=== PATIENT | male | born 1980 | race Caucasian/White ===

== ENCOUNTER 2025-03-29 09:15 | Outpatient (CLI) | payer OTHER, SELFPAY ==
--- OUTSIDE RECORDS SUMMARY | 2025-03-29 10:13 | XMS_ITS | Clinical Summary ---
Author Organization [facility] Address [address] [place] [address] Phone Care Team Providers Care Production Assembly Supervisor Name Role Phone Joyce Kumar MD Primary Care Provider Allergies Active Allergy Reactions Criticality Noted Date Comments Penicillins Anaphylaxis,Other (see Comments) High Medications BuPROPion HCl 200 MG TABLET SR 12 HR Take 150 mg by mouth 2 times daily. 2 9 Active Polyethylene Glycol 3350 (MIRALAX PO) Take 17 g by mouth 2 times daily. Active Sennosides (EX-LAX PO) Take 1 Tab by mouth. Weekly as needed. Active Probiotic Product (PROBIOTIC-10 PO) Take 1 Cap by mouth daily. Active Calcium Polycarbophil (FIBER-CAPS PO) Take 1 Cap by mouth daily. Active Psyllium (METAMUCIL PO) Take by mouth. Active Bismuth 262 MG Chewable Tablet 3 PO QID FOR 10 DAYS 120 Tab 9 Active Additional Information Patient not taking.Reported on 10/16/2021 metroNIDAZOLE (FLAGYL) 250 MG Tablet TAKE 1.5 TABS PO QID FOR 10 DAYS 60 Tab 9 Active Additional Information Patient not taking.Reported on 10/16/2021 omeprazole (PRILOSEC) 20 MG CAPSULE DELAYED RELEASE TAKE ONE BID 20 Cap 9 Active Additional Information Patient not taking.Reported on 10/16/2021 famotidine (PEPCID) 20 MG Tablet Take 20 mg by mouth 2 times daily. Active Family History Medical History Relation Name Comments Diabetes Father Bladder cancer Maternal Grandmother Ulcerative Colitis Mother Relation Name Status Comments Father Alive Maternal Grandmother Mother Alive Social History Tobacco Use Types Packs/Day Years Used Date Smoking Tobacco: Never Smokeless Tobacco: Never Tobacco Cessation:Counseling Given: No Alcohol Use Standard Drinks/Week Comments Yes 0 (1 standard drink = 0.6 oz pur e alcohol) rare Sexually Active Control Partners Comments Yes Female Sex and Gender Information Value Date Recorded Sex Assigned at Not on file Legal Sex Male 11:31 PM CDT Gender Identity Not on file Sexual Orientation Not on file Last Filed Vital Signs Vital Sign Reading Time Taken Comments Blood Pressure 100/80 10/16/2021 9:11 AM CDT Pulse 88 10/16/2021 9:11 AM CDT Temperature 37 C (98.6 F) 10/16/2021 9:11 AM CDT Respiratory Rate 20 10/16/2021 9:11 AM CDT Oxygen Saturation 98% 10/16/2021 9:11 AM CDT Inhaled Oxygen Concentration - - Weight 74.8 kg (165 lb) 10/16/2021 9:11 AM CDT Height 185.4 cm (6' 1) 10/16/2021 9:11 AM CDT Body Mass Index 21.77 10/16/2021 9:11 AM CDT Plan of Treatment Health Maintenance Due Date Last Done Comments Hepatitis C Virus (HCV) Screening 1979 Hepatitis B Immunization (1 of 3 - 19+ 3-dose series) 1998 Human Papillomavirus (HPV) Immunization (1 - 3-dose SCDM series) 2006 Colonoscopy 11/19/2023 11/18/2018 Colorectal Cancer Screening 11/19/2023 Cologuard 2024 Immunochemical Fecal Occult Blood 2024 Influenza Immunization (#1) 2025 SARS-COV-2 Immunization ( season) 2025 Respiratory Syncytial Virus (RSV) Immunization (Adult) (1 - 1-dose 75+ series) 2054 DTaP/Tdap/Td Immunization Discontinued 2011, 10/02/1994, 01/03/1982, Additional history exists TdaP Immunization Completed 11/12/2011 Meningococcal Immunization (ACWY) Aged Out No longer eligible based on patient's age to complete this topic Pneumococcal Immunization Combined Aged Out No longer eligible based on patient's age to complete this topic Rotavirus Immunization Aged Out No lo nger eligible based on patient's age to complete this topic Insurance MEDICAID [place] Care Teams Production Assembly Supervisor Relationship Specialty Start Date End Date Joyce Kumar MD [address] [place] [address] PCP - General Internal Medicine 10/04/18
--- OUTSIDE RECORDS SUMMARY | 2025-03-29 10:13 | XMS_ITS ---
Author Organization [facility] Address [address] [place] [address] Care Team Providers Care Revenue Collector Name Role Phone Roxann Montana Primary Care Provider [phone] Active Problems Problem Noted Date Diagnosed Date Renal cell carcinoma 02/01/2019 Cerebral cavernoma 12/31/2017 Bilateral carpal tunnel syndrome 05/18/2017 Numbness and tingling of right arm and leg 04/10 Renal cyst, right Current Treatment and Therapy Plans No current plan information found. Past Treatment and Therapy Plans No past plan information found. Lifetime Dose Tracking * Chemical Lifetime Dose Automatic Entry Manual Entr y Dose Length Product 3,462 mGy-cm 3,462 mGy-cm 0 mGy-cm
--- OUTSIDE RECORDS SUMMARY | 2025-03-29 10:13 | XMS_ITS | Clinical Summary ---
Author Organization [facility] Address [address] [place] [address] Care Team Providers Care Fulfillment Associate Name Role Phone Roxann Montana Primary Care Provider [phone] Source Comments [facility],non-owned Affiliates and Associated Physician Practices is amultiple site organization consisting of ambulatory clinics and hospital sitesin [place], [place], [place] and [place]. This disclosure is being madepursuant to the Care Everywhere program and may not contain all information available regarding this patient. Last updated 18.[facility] Allergies Active Allergy Reactions Criticality Noted Date Comments Penicillins Anaphylaxis,Other High 09/10/2016 Medications * Be aware that medications may not be up to date on this document. Alwaysverify current medications with the patient. sildenafil (VIAGRA) 50 MG tablet Take 1 (one) tablet by mouth once daily as needed (before sex for a better erection) 10 tablet 4 1 Active Additional Information Patient not taking.Reported on 02/14/2025 diazePAM (Valium) 5 MG tabletIndicatio ns:Abnormal MRI of head Take 1 (one) tablet by mouth 3 times daily as needed Take 1 pill 30 minutes prior to MRI and 1 pill just before MRI if needed 2 tablet 5 Active Active Problems Problem Noted Date Diagnosed Date Renal cell carcinoma 02/01/2019 Cerebral cavernoma 12/31/2017 Bilateral carpal tunnel syndrome 05/18/2017 Numbness and tingling of right arm and leg 04/10 Renal cyst, right Encounters Date Type Department Care Team Description 02/14/2025 8:45 AM CDT Office Visit [facility] - Neurosurgery [address], [place] [address] Aayush Sainz MD Dizziness (Primary Dx) 02/14/2025 Travel 02/11/2025 9:25 AM CDT - 02/11/2025 11:59 PM CDT Hospital Encounter [facility] MRI [address] [place] [address] Aayush Sainz MD Discharge Disposition: Home or Self Care 01/30/2025 Orders Only [facility] NEUROSURGERY [address] [place] [address] Aayush Sainz MD Abnormal MRI of head 01/30/2025 Travel 01/20/2025 10:30 AM CDT Office Visit [facility] - Urology [address] [place] [address] Kobe Hicks MD Renal cell carcinoma, unspecified laterality (HCC) (Primary Dx) 01/20/2025 8:19 AM CDT - 01/20/2025 11:59 PM CDT Hospital Encounter [facility] Health Imaging Services - CT Scan [address], [address] [place] [address] Kobe Hicks MD Discharge Disposition: Home or Self Care 01/20/2025 Travel 01/19/2025 Telephone [facility] - Neurosurgery [address] [place] [phone] Aayush Sainz MD Appointment (Called pt to schedule MRI and 1yr f/u with .Pt stated it wasn't a good time and would call back in to get rescheduled) 01/17/2025 Orders Only [facility] - Neurosurgery [address] [place] [phone] Aayush Sainz MD Cavernoma 01/02/2025 Orders Only [facility] - [facility]rology [address] [place] [phone] Mary Ellen Rosado LPN Renal cell carcinoma, unspecified laterality (HCC) from Last 3 Months Family History Medical History Relation Name Comments Cancer Mother Relation Name Status Comments Father Mother Alive Social History Tobacco Use Types Packs/Day Years Used Date Smoking Tobacco: Former Cigarettes Q uit: 02/01/2009 Smokeless Tobacco: Never Tobacco Cessation:Counseling Given: Not Answered Alcohol Use Standard Drinks/Week Comments Yes 0 (1 standard drink = 0.6 oz pur e alcohol) SELDOM PHQ-2 Answer Date Recorded Patient Health Questionnaire-2 Score 0 02/14/2025 Sex and Gender Information Value Date Recorded Sex Assigned at Not on file Legal Sex Male 1:45 PM CDT Gender Identity Not on file Sexual Orientation Not on file Last Filed Vital Signs Vital Sign Reading Time Taken Comments Blood Pressure 131/84 02/14/2025 8:32 AM CDT Pulse 84 02/14/2025 8:32 AM CDT Temperature 36.7 C (98 F) 02/14/2025 8:32 AM CDT Respiratory Rate 18 01/20/2025 9:16 AM CDT Oxygen Saturation 97% 02/14/2025 8:32 AM CDT Inhaled Oxygen Concentration - - Weight 90.3 kg (199 lb) 02/14/2025 8:32 AM CDT Height 182.9 cm (6') 02/14/2025 8:32 AM CDT Body Mass Index 26.99 02/14/2025 8:32 AM CDT Plan of Treatment Upcoming Encounters Date Type Department Care Team (Late st Contact Info) Description 01/19/2026 8:45 AM CDT Office Visit [facility] - Urology [address] [place] [address] [address] [place] [address] Kobe Hicks MD [address] [place] [phone] Health Maintenance Due Date Last Done Comments COLOGUARD (AGES 45-75) - COL ON CA SCREENING 1979 COLON MONITORING 1979 COLONOSCOPY - COLON CA SCREENING 1979 CT COLONOGRAPHY - COLON CA SCREENING 1979 Colorectal Cancer Screening 1979 FIT - COLON CA SCREENING 1979 FLEX SIG - COLON CA SCREENING 1979 LIPID TESTING 1979 HIV SCREENING 1994 HEPATITIS C SCREENING 02/28/1997 DTAP/TDAP/TD VACCINES (1 - Tdap) 1998 HEPATITIS B VACCINE (1 of 3 - 19+ 3-dose series) 1998 SCREENING FOR DIABETES 01/20/2025 0, 02/02/2019 COVID-19 VACCINE (1 - 2023-2 5 season) 2025 INFLUENZA VACCINE (#1) 2025 ZOSTER VACCINE (1 of 2) 2029 DEPRESSION SCREENING Completed 01/20/2025 HIB VACCINE Aged Out No longer eligi ble based on patient's age to complete this topic HPV VACCINE Aged Out No longer eligi ble based on patient's age to complete this topic MENINGOCOCCAL (Group B) VACCINE SHARED DECISION-MAKING Aged Out No longer eligible based on patient's age to complete this topic MENINGOCOCCAL GROUPS A/C/Y/W VACCINE Aged Out No longer eligible b ased on patient's age to complete this topic PNEUMOCOCCAL VACCINE Aged Out No long er eligible based on patient's age to complete this topic Procedures Procedure Name Priority Date/Time Associated Diagnosis Comments MRI BRAIN WWO CONTRAST Routine 10:[address] ABDOMEN PELVIS W CONTRAST Routine 01/20/2025 8:57 AM CDT Renal cell carcinoma, unspecified laterality (HCC) ISTAT CREATININE Routine 01/20/2025 8:41 AM CDT COMPREHENSIVE METABOLIC PANEL STAT 12/16/2019 10:14 AM CDT Renal cell carcinoma, unspecified laterality from Last 3 Months or Most Recently Relevant to Health Maintenance Results * MRI Brain Wwo Contrast (02/11/2025 10:52 AM CDT) Anatomical Region Laterality Modality Head Magnetic Resonan ce 02/19/2025 7:59 PM CDT Impressions 02/21/2025 3:02 PM CDT IMPRESSION: 1.Stable scan features compared to the prior. 2.No evidence of disease progression. 3.Stable patient's known cavernoma in the region of the upper medulla. 4.No MRI findings suggestive of recent hemorrhage. 5.No new acute intracranial findings or abnormal enhancement. > Interpreting Provider: Matteo Swartz MD on 02/21/2025 3:02 PM Narrative 02/21/2025 3:02 PM CDT PROCEDURE: MRI BRAIN WWO CONTRAST, DATE/TIME OF EXAM: 02/11/2025 10:54 AM, LOCATION [facility] INDICATION: D18.00: Cavernoma ADDITIONAL CLINICAL INFORMATION: Ordering Provider Reason For Exam: Cavernoma Technologist Note: None Additional: None. EXAMINATION: Magnetic resonance imaging (MRI) of the brain without and with contrast CONTRAST: GADOBUTROL 1 MMOL/ML IV SSM SO:9 mL TECHNIQUE: MRI of the brain was performed prior to and following the uneventful administration of 9 mL intravenous GADAVIST contrast according to a tumor protocol. COMPARISON: MRI of the brain from 07/05/2019. FINDINGS: Redemonstration of nonenhancing, T2 heterogenous mass with peripheral hemosiderin deposition, measuring up to 1.1 x 1.2 cm, (series 14, image 49), previously measured approximately 1.0 cm, (series 14, image 42), similar or slightly increased in size compared to the prior. Redemonstration of extensive associated susceptibility artifacts. Persistent mild local mass effect in the region of the upper medulla. No new or recent hemorrhage is identified. There is no evidence of acute intracranial hemorrhage elsewhere in the brain. No evidence of acute cerebral infarction is seen. The ventricles are of stable size, shape, and morphology. There is mild regional mass effect without midline shift. No enhancing lesions are identified. The corpus callosum and sella appear normal. The posterior fossa and craniocervical junction appear normal. Otherwise, no evidence of acute or chronic hemorrhage is identified. No evidence of acute cerebral infarction is seen. The ventricles are of stable size, shape, and morphology. Persistent mild regional mass effect in the srinivasan. No midline shift is identified. Trace periventricular white matter FLAIR hyperintensity is a nonspecific finding. No enhancing lesions are identified. The corpus callosum and sella appear grossly stable. The posterior fossa, brainstem, and craniocervical junction appear grossly stable. The visualized portions of the orbits appear grossly unremarkable. There is mild paranasal sinus disease. Mild opacification in the left mastoid air cells is again noted. Normal flow voids are demonstrated in the carotid arteries and basilar artery. The calvarium and visualized cervical spine appear grossly stable. Procedure Note Matteo Swartz MD - 02/21/2025 PROCEDURE: MRI BRAIN WWO CONTRAST, DATE/TIME OF EXAM: 02/11/2025 10:54AM, LOCATION [facility] INDICATION: D18.00: Cavernoma ADDITIONAL CLINICAL INFORMATION: Ordering Provider Reason For Exam: Cavernoma Technologist Note: None Additional: None. EXAMINATION: Magnetic resonance imaging (MRI) of the brain without andwith contrast CONTRAST: GADOBUTROL 1 MMOL/ML IV SSM SO:9 mL TECHNIQUE: MRI of the brain was performed prior to and following the uneventful administration of 9 mL intravenous GADAVIST contrastaccording to a tumor protocol. COMPARISON: MRI of the brain from 07/05/2019. FINDINGS: Redemonstration of nonenhancing, T2 heterogenous mass with peripheral hemosiderin deposition, measuring up to 1.1 x 1.2 cm, (series 14, image 49), previously measured approximately 1.0 cm, (series 14, image 42), similar or slightly increased in size compared to the prior. Redemonstration of extensive associated susceptibility artifacts. Persistent mild local mass effect in the region of the upper medulla.No new or recent hemorrhage is identified. There is no evidence of acute intracranial hemorrhage elsewhere in the brain. No evidence of acute cerebral infarction is seen. The ventricles are of stable size, shape,and morphology. There is mild regional mass effect without midline shift. No enhancing lesions are identified. The corpus callosum and sella appear normal. The posterior fossa and craniocervical junction appear normal. Otherwise, no evidence of acute or chronic hemorrhage is identified. No evidence of acute cerebral infarction is seen. The ventricles are ofstable size, shape, and morphology. Persistent mild regional mass effect in the srinivasan. No midline shift is identified. Trace periventricular white matter FLAIR hyperintensity is a nonspecific finding. No enhancing lesions are identified. The corpus callosum and sella appear grossly stable. The posterior fossa, brainstem, and craniocervical junction appear grossly stable. The visualized portions of the orbits appear grossly unremarkable. Thereis mild paranasal sinus disease. Mild opacification in the left mastoid air cells is again noted. Normal flow voids are demonstrated in the carotid arteries and basilar artery. The calvarium and visualized cervical spine appear grossly stable. IMPRESSION: 1.Stable scan features compared to the prior. 2.No evidence of disease progression. 3.Stable patient's known cavernoma in the region of the upper medulla. 4.No MRI findings suggestive of recent hemorrhage. 5.No new acute intracranial findings or abnormal enhancement. > Interpreting Provider: Matteo Swartz MD on 02/21/2025 3:02 PM us Aayush Sainz MD MR ORDERABLES Final Result * CT Abdomen Pelvis W Contrast (01/20/2025 8:57 AM CDT) Anatomical Region Laterality Modality Abdomen, Pelvis Computed Tomogra phy 01/20/2025 9:54 AM CDT Impressions 01/20/2025 9:58 AM CDT IMPRESSION: 1. No evidence of recurrent disease. > Interpreting Provider: Zeeshan Farias MD on 01/20/2025 9:58 AM Narrative 01/20/2025 9:58 AM CDT PROCEDURE: CT ABDOMEN PELVIS W CONTRAST DATE/TIME OF EXAM: 01/20/2025 8:58 AM CLINICAL INFORMATION: None relevant/not provided if blank. Indication: C64.9: Renal cell carcinoma, unspecified laterality (HCC) Additional History: COMPARISON: 03/25/2023 TECHNIQUE: CT of the abdomen and pelvis was performed following intravenous contrast utilizing standard protocol. CT dose reduction technique was used, including Automated Exposure Control. CONTRAST: IOPAMIDOL 76 % IV SOLN:100 mL FINDINGS: LUNG BASES: Mild dependent atelectasis. LIVER: Within normal limits. BILE DUCTS: Nondilated. GALLBLADDER: Contains several stones but otherwise appears normal. SPLEEN: Within normal limits. PANCREAS: Within normal limits. ADRENALS: Within normal limits. KIDNEYS/URETERS: Postsurgical changes in the posterior right interpolar kidney are again noted. No new nodular or masslike enhancement in that region. No suspicious focal lesions are identified. BOWEL: Normal in caliber. PERITONEUM/RETROPERITONEUM: No ascites, free air or enlarged mesenteric/retroperitoneal lymph nodes. PELVIC ORGANS: Within normal limits. VESSELS: Abdominal aorta is mildly atherosclerotic but normal in caliber. ABDOMINAL WALL: Tiny umbilical and supraumbilical fat-containing hernias. BONES: No suspicious lytic or blastic lesions. Grade 1-2 anterolisthesis of L5 on S1 with chronic L5 pars defects. Procedure Note Zeeshan Farias MD - 01/20/2025 PROCEDURE: CT ABDOMEN PELVIS W CONTRAST DATE/TIME OF EXAM: 01/20/2025 8:58 AM CLINICAL INFORMATION: None relevant/not provided if blank. Indication: C64.9: Renal cell carcinoma, unspecified laterality (HCC) Additional History: COMPARISON: 03/25/2023 TECHNIQUE: CT of the abdomen and pelvis was performed following intravenouscontrast utilizing standard protocol. CT dose reduction technique was used, including Automated ExposureControl. CONTRAST: IOPAMIDOL 76 % IV SOLN:100 mL FINDINGS: LUNG BASES: Mild dependent atelectasis. LIVER: Within normal limits. BILE DUCTS: Nondilated. GALLBLADDER: Contains several stones but otherwise appears normal. SPLEEN: Within normal limits. PANCREAS: Within normal limits. ADRENALS: Within normal limits. KIDNEYS/URETERS: Postsurgical changes in the posterior right interpolar kidney are again noted. No new nodular or masslike enhancement in that region. No suspicious focal lesions are identified. BOWEL: Normal in caliber. PERITONEUM/RETROPERITONEUM: No ascites, free air or enlarged mesenteric/retroperitoneal lymph nodes. PELVIC ORGANS: Within normal limits. VESSELS: Abdominal aorta is mildly atherosclerotic but normal incaliber. ABDOMINAL WALL: Tiny umbilical and supraumbilical fat-containinghernias. BONES: No suspicious lytic or blastic lesions. Grade 1-2 anterolisthesisof L5 on S1 with chronic L5 pars defects. IMPRESSION: 1. No evidence of recurrent disease. > Interpreting Provider: Zeeshan Farias MD on 01/20/2025 9:58 AM us Kobe Hicks MD CT ORDERABLES Final Resu lt * ISTAT CREATININE (01/20/2025 8:41 AM CDT) Creatinine POCT 0.90 0.60 - 1.30 mg/dL 01/20/2025 8:43 AM CDT [facility] eGFR by CKD-EPI >90 >90 mL/min/1.7 3 m2 01/20/2025 8:43 AM CDT [facility] Sample iSTAT AIME 01/20/2025 8:43 AM CDT [facility] Blood BLOOD SPECIMEN / Unknown 01/20/2025 8:41 AM CDT 01/20/2025 8:43 AM CDT Kobe Hicks MD LAB - POINT OF CARE ORDERA BLES Final Result [facility] [address] [place] [address] * (ABNORMAL) COMPREHENSIVE METABOLIC PANEL (12/16/2019 10:14 AM CDT) BUN 8 7 - 26 mg/dL 12/16/2019 10:35 AM [facility] Creatinine 0.8 0.6 - 1.2 mg/dL 12/16/2019 10:35 AM [facility] Sodium 139 136 - 145 mmol/L 12/16/2019 10:35 AM [facility] Potassium 4.2 3.5 - 4.5 mmol/L 12/16/2019 10:35 AM [facility] Comment:Hemolysis detected i n this specimen. Hemolysis is known to cause elevations in this analyte. Caution should be exercised in the interpretation of this result. Recommend repeat testing if clinically indicated. Chloride 105 98 - 107 mmol/L 12/16/2019 10:35 AM [facility] CO2 23 22 - 29 mmol/L 12/16/2019 10:35 AM [facility] Glucose 119(H) 70 - 115 mg/dL 12/16/2019 10:35 AM [facility] Calcium 9.3 8.4 - 10.2 mg/dL 12/16/2019 10:35 AM [facility] Protein Total 7.8 6.0 - 8.3 g/dL 12/16/2019 10:35 AM [facility] Comment:Hemolysis detected i n this specimen. Hemolysis is known to cause elevations in this analyte. Caution should be exercised in the interpretation of this result. Recommend repeat testing if clinically indicated. Albumin 4.6 3.4 - 5.0 g/dL 12/16/2019 10:35 AM [facility] Bilirubin Total 0.8 0.2 - 1.2 mg/dL 12/16/2019 10:35 AM [facility] Alkaline Phosphatase 72 40 - 150 Units/L 12/16/2019 10:35 AM [facility] ALT 11 0 - 55 Units/L 12/16/2019 10:35 AM [facility] AST 17 5 - 34 Units/L 12/16/2019 10:35 AM [facility] Comment:Hemolysis detected i n this specimen. Hemolysis is known to cause elevations in this analyte. Caution should be exercised in the interpretation of this result. Recommend repeat testing if clinically indicated. Anion Gap 15 8 - 18 12/16/2019 10:35 AM [facility] BUN/Creatinine Ratio 10 7 - 23 12/16/2019 10:35 AM [facility] Osmolality Calculated 287 270 - 300 mOsm/kg 12/16/2019 10:35 AM [facility] Albumin/Globulin Ratio 1.4 1.1 - 2.3 12/16/2019 10:35 AM [facility] eGFR >60 >60 mL/min/1. 73 m2 12/16/2019 10:35 AM [facility] Blood BLOOD SPECIMEN / Unknown Venipuncture / Unknown 12/16/2019 10:14 AM CDT 12/16/2019 10:[address] [facility] Mehdi Mendoza MD LAB - CHEMISTRY ORDERABLES Fi nal Result [address] [address] [phone] from Last 3 Months or Most Recently Relevant to Health Maintenance Insurance [facility] Advance Directives * Full Code (Latest Code Status on File) Date Activated Date Inactivated Comments 02/01/2019 1:49 PM 02/02/2019 7:53 PM Care Teams Fulfillment Associate Relationship Specialty Start Date End Date Roxann [place] [address] [facility] [address] [address] PCP - General 01/20/25
== END 2025-03-29 09:16 | disposition home or self-care (01) ==
LOC: ANHBWCAUD 09:15
PROVIDERS: PCP Otolaryngology; Visit Provider Otolaryngology
DX: H91.93 Unspecified hearing loss, bilateral (principal)
CPT/HCPCS: 92557; 92567